=== PATIENT | female | born 1965 | race Hispanic/Latino ===

== ENCOUNTER 2017-12-11 15:56 | Outpatient (CLI) | payer OTHER | END 2017-12-11 15:57 | disposition home or self-care (01) | LOC: BICMAMMO 15:56 → EDSTATUS 16:00 | PROVIDERS: ATTEND Nurse Practitioner Family | DX: Z12.31 Encounter for screening mammogram for malignant neoplasm of breast (principal) | CPT/HCPCS: 77063; 77067 ==

== ENCOUNTER 2019-10-11 08:16 | Emergency (ER) | payer OTHER, SELFPAY | END 2019-10-11 08:54 | disposition home or self-care (01) | LOC: ERS 08:16 | DX: Z71.1 Person with feared health complaint in whom no diagnosis is made (principal) | CPT/HCPCS: 99283 ==

== ENCOUNTER 2025-07-07 15:14 | Outpatient (CLI) | payer OTHER | END 2025-07-07 15:15 | disposition home or self-care (01) | LOC: BICMAMMO 15:14 → EDSTATUS 15:45 | PROVIDERS: ATTEND Family Medicine | DX: Z12.31 Encounter for screening mammogram for malignant neoplasm of breast (principal); Z91.89 Other specified personal risk factors, not elsewhere classified | CPT/HCPCS: 77067 ==